=== PATIENT | male | born 1945 | race Caucasian/White ===

== ENCOUNTER 2020-07-07 13:04 | Inpatient (IN) | payer BC ==
[~2020-07-07] VITALS: Ht 170.2 cm; Wt 83.5 kg
[2020-07-07 18:42] VITALS: BP 98/49
[2020-07-07] MEDS ORDERED: Z GUARD REMEDY PASTE 57 GM TUBE TOP PRN (18:45)
[2020-07-07] MEDS ORDERED: HYDR-894 PO (19:16)
[2020-07-07] MEDS ORDERED: ALPR2TAB7 PO (19:16)
[2020-07-07] MEDS ORDERED: CLON0.3P TD (19:16)
[2020-07-07] MEDS ORDERED: VALS80TA2 PO (19:16)
[2020-07-07] MEDS ORDERED: ASPI-612 PO (19:16)
[2020-07-07] MEDS ORDERED: METF-494 PO (19:16)
[2020-07-07] MEDS ORDERED: ESCI20TA37 PO (19:16)
[2020-07-07] MEDS ORDERED: GLIM2TAB31 PO (19:16)
[2020-07-07] MEDS ORDERED: NITROGLYCERIN OINT TP (19:16)
[2020-07-07] MEDS ORDERED: DOCU-141 PO (19:16)
[2020-07-07] MEDS ORDERED: FLUT16SP NS (19:16)
[2020-07-07] MEDS ORDERED: ALLO300T2 PO (19:16)
[2020-07-07] MEDS ORDERED: HYDR-4384 PO (19:16)
[2020-07-07] MEDS ORDERED: INSU100V7 SQ (19:16)
[2020-07-07] MEDS ORDERED: NUT.237L36 PO (19:16)
[2020-07-07] MEDS ORDERED: ACET-2154 PO (19:16)
[2020-07-07] MEDS ORDERED: SIMV-49 PO (19:16)
[2020-07-07] MEDS ORDERED: MAGN400O6 PO (19:16)
[2020-07-07] MEDS ORDERED: TAMS-3 PO (19:16)
[2020-07-07] MEDS ORDERED: hydrALAZINE HCL 25 MG TABLET PO PRN (19:30)
[2020-07-07] MEDS ORDERED: DOCUSATE SODIUM 100 MG CAPSULE PO PRN (19:30)
[2020-07-07] MEDS ORDERED: DEXTROSE 50% 50 ML DISP.SYRIN IV PRN (19:30)
[2020-07-07] MEDS ORDERED: HYDROCODONE/APAP 5-325MG TABLET PO PRN (19:30)
[2020-07-07] MEDS ORDERED: ACETAMINOPHEN 325 MG TABLET PO PRN (19:30)
[2020-07-07 19:55] VITALS: BP 111/52
[2020-07-07] MEDS ORDERED: CLONIDINE-TTS 3 PATCH TD SCH (20:15)
[2020-07-07] MEDS ORDERED: NALOXONE HCL 0.4 MG/ML AMPUL IV PRN (21:00)
[2020-07-07] MEDS: BLOOD SUGAR DIAGNOSTIC 1 EACH STRIP VI SCH (21:43)
[2020-07-07] MEDS: INSULIN REGULAR, HUMAN 300 UNIT/3 ML VIAL SQ PRN (21:43)
[2020-07-07] MEDS: SIMVASTATIN 40 MG TABLET PO SCH (21:46)
[2020-07-07] MEDS: TAMSULOSIN HCL 0.4 MG CAP.SR.24H PO SCH (21:46)
[2020-07-07] MEDS: OXYCODONE HCL 5 MG TABLET PO PRN (21:47)
[2020-07-07] MEDS: INSULIN GLARGINE,HUM 300 UNITS/3 ML CARTRIDGE SQ SCH (21:48)
--- NOTE | 2020-07-07 22:18 | NUR ---
Received pt resting in bed and watching tv. AAO x2-3. No acute distress noted. Pt noted to be upset and hyperverbal with flights of ideas. Pt would be talking about his pain meds, then about directions where the sun rises, and how this hospital is crappy. Pt is angry because of his pain medication. He has [place], but pt stated that he takes oxycontin, morphine, and xanax. Pt refused to answer some assessment questions. Pt refused head-to-toe assessment. Pt had right hip replacement and has dressing that has been changed today 07/07/2020 in [facility], unable to take pic due to pt refusal and being upset. Risks and benefits explained, still refused. Notified Dr. Tafoya of these concerns with new orders. Pt oriented to unit and equipment. MRSA swab sent to the lab. Due meds given as ordered. C/o 10/10 pain of generalized and right hip pain, PRN pain med given as ordered. Safety measures maintained. Call light and personal items within reach. Will continue to monitor.
[2020-07-07] MEDS: MAGNESIUM HYDROXIDE 30 ML LIQUID UDC PO PRN (23:54)
[2020-07-07] MEDS: ALPRAZOLAM 0.5 MG TABLET PO PRN (23:54)
[2020-07-08 05:14] VITALS: BP 121/48
[2020-07-08] MEDS: BLOOD SUGAR DIAGNOSTIC 1 EACH STRIP VI SCH ×4 (06:31→20:35)
[2020-07-08] MEDS: INSULIN REGULAR, HUMAN 300 UNIT/3 ML VIAL SQ PRN ×3 (07:54→20:41)
[2020-07-08] MEDS: OXYCODONE HCL 5 MG TABLET PO PRN ×3 (07:55→20:29)
[2020-07-08 08:00] VITALS: BP 149/62
[2020-07-08] MEDS: ALLOPURINOL 300 MG TABLET PO SCH (08:01)
[2020-07-08] MEDS: ESCITALOPRAM OXALATE 10 MG TABLET PO SCH (08:01)
[2020-07-08] MEDS: VALSARTAN 80 MG TABLET PO SCH (08:01)
[2020-07-08] MEDS: GLIMEPIRIDE 2 MG TABLET PO SCH (08:01)
[2020-07-08] MEDS: ASPIRIN 325 MG TABLET PO SCH ×2 (08:01→16:18)
[2020-07-08] MEDS: METFORMIN XR 500 MG TAB.SR.24H PO SCH ×2 (08:08→17:11)
[2020-07-08] MEDS: GLUCERNA SHAKE 237 ML CAN PO SCH ×2 (08:35→16:19)
[2020-07-08] MEDS ORDERED: FLUTICASONE PROP NASAL SPRAY 16 GM BOTTLE NS SCH (09:00)
[2020-07-08] MEDS: ALPRAZOLAM 0.5 MG TABLET PO PRN (11:18)
[2020-07-08] MEDS ORDERED: FENTANYL 75 MCG/HR PATCH EACH TD SCH (14:00)
[2020-07-08] MEDS ORDERED: NALOXONE HCL 0.4 MG/ML AMPUL IV PRN (14:30)
[2020-07-08] MEDS: FENTANYL 50 MCG/HR PATCH TD SCH (15:00)
[2020-07-08 15:08] VITALS: BP 119/53
--- NOTE | 2020-07-08 19:45 | NUR ---
Patient in bed alert oriented, no sob no chest pain. Patient sleeping but easily arousable. Patient with abduction pillow between legs, kept both heels elevated with pillow, patient on supine position, refused to be turn on his left side, prefer to say on same position. Patient complain of r hip pain will medicate as ordered. cont to monitor.
[2020-07-08] MEDS: SIMVASTATIN 40 MG TABLET PO SCH (20:18)
[2020-07-08] MEDS: TAMSULOSIN HCL 0.4 MG CAP.SR.24H PO SCH (20:18)
[2020-07-08] MEDS: TRAZODONE 100 MG TABLET PO SCH (20:18)
[2020-07-08 20:27] VITALS: BP 125/55
--- NOTE | 2020-07-08 20:30 | NUR ---
Patient was offered to be turn and reposition, and to check his diaper but refused. Patient complain of pain of the right hip medicated as ordered for pain. cont to monitor.
[2020-07-08] MEDS: MAGNESIUM HYDROXIDE 30 ML LIQUID UDC PO PRN (20:32)
[2020-07-08] MEDS: INSULIN GLARGINE,HUM 300 UNITS/3 ML CARTRIDGE SQ SCH (20:37)
[2020-07-09] MEDS: OXYCODONE HCL 5 MG TABLET PO PRN ×3 (04:41→21:49)
[2020-07-09] MEDS: BLOOD SUGAR DIAGNOSTIC 1 EACH STRIP VI SCH ×4 (06:05→21:23)
[2020-07-09 06:43] VITALS: BP 130/61
--- NOTE | 2020-07-09 06:57 | NUR ---
Patient slept most of the night, cont on pain management s/p r hip replacement. Patient dressing intact, abduction pillow in place, given mom last night no result yet will endorsed to am shift. Patient was turn and reposition, incontinent of bladder, kept clean and dry, cont to monitor.
[2020-07-09 07:48] VITALS: BP 143/67
[2020-07-09] MEDS: INSULIN REGULAR, HUMAN 300 UNIT/3 ML VIAL SQ PRN ×3 (08:21→20:56)
[2020-07-09] MEDS: METFORMIN XR 500 MG TAB.SR.24H PO SCH ×2 (08:22→17:59)
[2020-07-09] MEDS: VALSARTAN 80 MG TABLET PO SCH (08:23)
[2020-07-09] MEDS: GLIMEPIRIDE 2 MG TABLET PO SCH (08:23)
[2020-07-09] MEDS: ALLOPURINOL 300 MG TABLET PO SCH (08:23)
[2020-07-09] MEDS: ESCITALOPRAM OXALATE 10 MG TABLET PO SCH (08:24)
[2020-07-09] MEDS: FLUTICASONE PROP NASAL SPRAY 16 GM BOTTLE NS SCH (08:27)
[2020-07-09] MEDS: ASPIRIN 325 MG TABLET PO SCH ×2 (08:30→17:45)
[2020-07-09] MEDS: ALPRAZOLAM 0.5 MG TABLET PO PRN ×2 (08:49→23:57)
--- NOTE | 2020-07-09 09:45 | NUR ---
Received patient in bed, Pt. is AAO x 4, NO SOB noted. Patient able to express needs. Vital signs stable. Patient S/P right hip surgery, dressing noted soiled with serosanguineous fluid at the start of the shift. Dressing changed and intact and dry. Due medications administered as ordered and scheduled. Pt. on Accu checks. Tolerated meds well. Patient administered Xanax 1mg PO PRN for anxiety and stated feeling much better. Skin kept clean and dry. patient repositioned side to side. Needs attended, safety measures in place, call light left at bed side and will continue with care.
[2020-07-09] MEDS: GLUCERNA SHAKE 237 ML CAN PO SCH ×2 (09:56→17:46)
--- NOTE | 2020-07-09 13:00 | NUR ---
Patient was up with PT/OT and took a shower during shift.
[2020-07-09] MEDS: MAGNESIUM HYDROXIDE 30 ML LIQUID UDC PO PRN (14:59)
--- NOTE | 2020-07-09 16:30 | NUR ---
Right hip dressing changed, surgical site with malena, pictures taken, NO S/SX of infection cleansed with NS, pat dried with gauze and covered with surgical dressing.
[2020-07-09 16:57] VITALS: BP 124/50
--- NOTE | 2020-07-09 18:22 | NUR ---
Patient in stable condition, NO acute distress noted. Vital signs stable. Due evening medications administered as ordered and scheduled and tolerated well. Skin kept clean and dry. SCD pumps on, BLE elevated. Patient repositioned for comfort. Also encouraged patient to move side to side. Patient stated feeling better after pain med was administered. Right hip dressing intact and dry at this time. Needs attended, safety measures in place and will continue with care.
--- NOTE | 2020-07-09 20:00 | NUR ---
Received patient in bed alert x 4 able to make needs known,no s/s of distress noted.Patient refused abduction pillow to be place in between legs at this time.Elevated both heels with pillow.Tolerated well.Dressing intact on Rt hip S/P Rt hip replacement.Due meds given .Will continue to monitor.Call light with in reach.
[2020-07-09 20:08] VITALS: BP 143/62
[2020-07-09] MEDS: SIMVASTATIN 40 MG TABLET PO SCH (20:49)
[2020-07-09] MEDS: TAMSULOSIN HCL 0.4 MG CAP.SR.24H PO SCH (20:49)
[2020-07-09] MEDS: TRAZODONE 100 MG TABLET PO SCH (20:49)
[2020-07-09] MEDS: INSULIN GLARGINE,HUM 300 UNITS/3 ML CARTRIDGE SQ SCH (20:52)
[2020-07-10 05:21] VITALS: BP 149/61
--- NOTE | 2020-07-10 05:51 | NUR ---
Patient sleeping but easily arousable c/o RT hip pain medicated as ordered with good result.Positioned gently with two person assist to left side tolerated well.Patient still refused to use abduction pillow to be place in between legs.Risk and benefits explained 3x.Patient Still refused.Stated he will "Notify nurses if he wants it"SCD pumps on,functioning well.Patient voided 3x using urinal.All needs anticipated and met accordingly.Safety measures remained in place.
[2020-07-10] MEDS: BLOOD SUGAR DIAGNOSTIC 1 EACH STRIP VI SCH ×4 (07:30→20:57)
[2020-07-10 08:57] VITALS: BP 151/79
[2020-07-10] MEDS: GLUCERNA SHAKE 237 ML CAN PO SCH ×2 (09:00→17:37)
[2020-07-10] MEDS: VALSARTAN 80 MG TABLET PO SCH (09:52)
[2020-07-10] MEDS: GLIMEPIRIDE 2 MG TABLET PO SCH (09:52)
[2020-07-10] MEDS: ALLOPURINOL 300 MG TABLET PO SCH (09:52)
[2020-07-10] MEDS: ASPIRIN 325 MG TABLET PO SCH ×2 (09:52→17:33)
[2020-07-10] MEDS: METFORMIN XR 500 MG TAB.SR.24H PO SCH ×2 (09:57→17:34)
[2020-07-10] MEDS: FLUTICASONE PROP NASAL SPRAY 16 GM BOTTLE NS SCH (09:57)
[2020-07-10] MEDS: ESCITALOPRAM OXALATE 10 MG TABLET PO SCH (09:58)
[2020-07-10] MEDS: OXYCODONE HCL 5 MG TABLET PO PRN ×3 (10:19→18:56)
--- NOTE | 2020-07-10 10:30 | NUR ---
PATIENT MAKING MULTIPLE COMPLAINTS PRE AND POST PHYSICAL THERAPY TX. PT ASSISTED WITH ALL REQUESTS INCLUDING ICE WATER,APPLE SAUCE ETC AND NURSE AWARE. PATIENT SET UP IN CHAIR AWAITING LUNCH WITH NO NEW COMPLAINTS.
[2020-07-10] MEDS: INSULIN REGULAR, HUMAN 300 UNIT/3 ML VIAL SQ PRN ×4 (10:38→20:24)
[2020-07-10] MEDS: ALPRAZOLAM 0.5 MG TABLET PO PRN ×3 (12:52→21:42)
--- NOTE | 2020-07-10 12:54 | NUR ---
Pt became anxious after talking with Dr. Mejia and therapists. PRN Xanax administered per PRN orders. Will continue to monitor for safety.
--- NOTE | 2020-07-10 13:48 | NUR ---
Pt received sound asleep in bed. No acute distress or SOB noted. Pt repositioned and assisted to attempted to use urinal, twice. Pt compliant with routine medications including 2 units of insulin coverage. PRN pain medication Oxyir 20 mg administered for pain. Pt vocalizing multiple complaints at length, from the age of his surgeon, to the type of care he has received, to insurance issues. associate account manager brought in to discuss plan of care and several D/C planning concerns, unsuccessfully. Pt c/o constipation, both PRN stool softener and MOM offered along with prune juice, all refused. SCD pumps applied while in bed. Pt cooperative with therapies as offered. Spoke with Pt's to update. All comfort and safety needs addressed. Call light placed within reach. Will continue to monitor.
--- NOTE | 2020-07-10 14:09 | NUR ---
INDIVIDUALIZED PLAN OF CARE
[2020-07-10] MEDS: MAGNESIUM HYDROXIDE 30 ML LIQUID UDC PO PRN (15:09)
[2020-07-10] MEDS ORDERED: POLYVINYL ALCOHOL OPHT DROPS 15 ML BOTTLE EACHEYE PRN (15:15)
--- NOTE | 2020-07-10 16:05 | NUR ---
HAYLEE COORDINATION OF CARE: SW provided patient with the following caregiving resources: [facility]; ([phone]), [facility]; ([phone]), [facility]; ([phone]). tray worker will continue to remain available to patient and provide ongoing supportive counseling and assess for any psychosocial needs. tray worker will encourage patient to comply with ARU goals of care. Addendum: 07/10/20 at 1606 by ANCA LEACH SW COORDINATION OF CARE: HAYLEE provided pts with the following caregiving resources: [facility]; ([phone]), [facility]; ([phone]), [facility]; ([phone]). tray worker will continue to remain available to patient and provide ongoing supportive counseling and assess for any psychosocial needs. tray worker will encourage patient to comply with ARU goals of care.
[2020-07-10 16:53] VITALS: BP 138/62
--- NOTE | 2020-07-10 19:13 | NUR ---
PRN Oxyir 20mg administered per PRN orders for 10/10 pain. Pt continues to express multiple c/o being dissatisfied irrelevant of attempts to meet possible needs. Pt refuses to transfer to toilet with assistance. Pt seen by , new order for psych consult received. Pt teaching provided regarding pain patch Q72hrs not being due until tomorrow. Call light placed within reach. Will continue to monitor and endorse to recruitment intern nurse.
--- NOTE | 2020-07-10 19:30 | NUR ---
RECEIVED PT SITTING COMFORTABLY . TENNIS PROFESSIONAL WAKE, ALERT AND ORIENTEDX4. PT COMPLAINING FOR A LOT OF STUFF LIKE PAIN MEDICATION, HIS FENTANYL PATCH,FOOD ETC. SAFETY AND COMFORT PROVIDED. WILL CONTINUE TO MONITOR.
[2020-07-10 20:15] VITALS: BP 130/79
[2020-07-10] MEDS: TAMSULOSIN HCL 0.4 MG CAP.SR.24H PO SCH (20:23)
[2020-07-10] MEDS: SIMVASTATIN 40 MG TABLET PO SCH (20:23)
[2020-07-10] MEDS: TRAZODONE 100 MG TABLET PO SCH (20:23)
[2020-07-10] MEDS: INSULIN GLARGINE,HUM 300 UNITS/3 ML CARTRIDGE SQ SCH (20:24)
[2020-07-11] MEDS: OXYCODONE HCL 5 MG TABLET PO PRN ×4 (01:57→21:16)
[2020-07-11 05:16] VITALS: BP 132/68
--- NOTE | 2020-07-11 06:01 | NUR ---
PT SLEPT INTERMITTENTLY. PT IN NO ACUTE DISTRESS. PT TURNED AND REPOSITIONED. PT REFUSED TO USE HIS ABDUCTOR PILLOW. PT OFFERED PRUNE JUICE AND COLACE FOR HIS COMPLAINT OF CONSTIPATION BUT PT REFUSED. DRESSING INTACT. PT GIVEN 2142 XANAX FOR ANXIETY. PT TOLERATED IT WELL. PT GIVEN OXYIR AT 0157 FOR PAIN. PT TOLERATED IT WELL. PT ON PSYCH CONSULT. SENT FACE SHEET TO [facility]. PRESCRIBED MEDICATION GIVEN AND PT TOLERATED IT WELL.SAFETY AND COMFORT PROVIDED. WILL ENDORSE TO INCOMING NURSE FOR CONTINUITY OF CARE.
[2020-07-11] MEDS: PANTOPRAZOLE SODIUM 40 MG TABLET.DR PO SCH (06:05)
[2020-07-11] MEDS: BLOOD SUGAR DIAGNOSTIC 1 EACH STRIP VI SCH ×4 (06:32→21:15)
--- NOTE | 2020-07-11 06:32 | NUR ---
PT BLOOD SUGAR 155. PT GRUMPY AND DOESN'T WANT TO BE TOUCHED AND MOVED. PT REFUSED DRESSING CHANGED. DRESSING INTACT. WILL ENDORSE TO INCOMING NURSE.
[2020-07-11] MEDS: METFORMIN XR 500 MG TAB.SR.24H PO SCH ×2 (07:51→18:23)
[2020-07-11 08:00] VITALS: BP 110/71
[2020-07-11] MEDS: GLUCERNA SHAKE 237 ML CAN PO SCH ×2 (08:05→17:25)
[2020-07-11] MEDS: INSULIN REGULAR, HUMAN 300 UNIT/3 ML VIAL SQ PRN ×3 (08:12→21:21)
[2020-07-11] MEDS: ASPIRIN 325 MG TABLET PO SCH ×2 (09:13→17:09)
[2020-07-11] MEDS: ESCITALOPRAM OXALATE 10 MG TABLET PO SCH (09:13)
[2020-07-11] MEDS: FLUTICASONE PROP NASAL SPRAY 16 GM BOTTLE NS SCH (09:13)
[2020-07-11] MEDS: ALLOPURINOL 300 MG TABLET PO SCH (09:13)
[2020-07-11] MEDS: GLIMEPIRIDE 2 MG TABLET PO SCH (09:13)
--- NOTE | 2020-07-11 10:00 | NUR ---
Withheld Valsartan at this time since pt's BP is 110/71. Will recheck BP later.
--- NOTE | 2020-07-11 11:53 | NUR ---
Dressing on right hip changed. Soiled with small serosanguineous drainage in dressing. No redness or swelling. No signs of infection. Tolerated well
[2020-07-11 12:30] VITALS: BP 157/79
[2020-07-11] MEDS: VALSARTAN 80 MG TABLET PO SCH (12:53)
--- NOTE | 2020-07-11 12:55 | NUR ---
gave Valsartan since BP is now 157/79, HR 94
--- NOTE | 2020-07-11 14:36 | NUR ---
Dr. Bowman talking to pt for psych consult
[2020-07-11] MEDS: FENTANYL 50 MCG/HR PATCH TD SCH (14:44)
[2020-07-11] MEDS: ALPRAZOLAM 0.5 MG TABLET PO PRN ×2 (14:46→21:26)
[2020-07-11 16:30] VITALS: BP 169/76
--- NOTE | 2020-07-11 19:35 | NUR ---
Received patient calm and lying in bed. AAOx3. No Signs of acute distress at this time. Patient denies SOB and pain. Patient is lying supine and refuses to use the abductor wedge. Vital signs stable. Side rails upx2, bed low and in locked position. Safety measures in place and will continue to monitor.
[2020-07-11 20:27] VITALS: BP 131/62
[2020-07-11] MEDS ORDERED: QUETIAPINE FUMARATE 25 MG TABLET PO SCH (21:00)
[2020-07-11] MEDS: SIMVASTATIN 40 MG TABLET PO SCH (21:14)
[2020-07-11] MEDS: TRAZODONE 100 MG TABLET PO SCH (21:14)
[2020-07-11] MEDS: TAMSULOSIN HCL 0.4 MG CAP.SR.24H PO SCH (21:14)
[2020-07-11] MEDS: INSULIN GLARGINE,HUM 300 UNITS/3 ML CARTRIDGE SQ SCH (21:20)
[2020-07-12 04:24] VITALS: BP 131/61
[2020-07-12] MEDS: PANTOPRAZOLE SODIUM 40 MG TABLET.DR PO SCH (06:35)
[2020-07-12] MEDS: BLOOD SUGAR DIAGNOSTIC 1 EACH STRIP VI SCH ×4 (06:46→20:28)
--- NOTE | 2020-07-12 07:30 | NUR ---
Received patient resting in bed. No signs of respiratory distress noted, patient is saturating well on room air. Patient has not IV access at this time. Patient reports pain of 9/10, will check eMAR for pain medication and administer as prescribed. Safety precautions in place, bed in the lowest position, locked with alarm activated. Call light and belongings are within reach. Will continue to monitor and observe.
[2020-07-12] MEDS: ASPIRIN 325 MG TABLET PO SCH ×2 (08:50→17:25)
[2020-07-12] MEDS: METFORMIN XR 500 MG TAB.SR.24H PO SCH ×2 (08:50→17:30)
[2020-07-12] MEDS: GLIMEPIRIDE 2 MG TABLET PO SCH (08:50)
[2020-07-12] MEDS: ALLOPURINOL 300 MG TABLET PO SCH (08:51)
[2020-07-12] MEDS: VALSARTAN 80 MG TABLET PO SCH (08:51)
[2020-07-12] MEDS: ESCITALOPRAM OXALATE 10 MG TABLET PO SCH (08:51)
[2020-07-12] MEDS: OXYCODONE HCL 5 MG TABLET PO PRN ×2 (08:52→17:25)
[2020-07-12] MEDS: FLUTICASONE PROP NASAL SPRAY 16 GM BOTTLE NS SCH (08:55)
[2020-07-12] MEDS ORDERED: CLONIDINE-TTS 3 PATCH TD SCH (09:00)
[2020-07-12] MEDS: GLUCERNA SHAKE 237 ML CAN PO SCH ×2 (09:05→17:26)
[2020-07-12 10:08] VITALS: BP 141/58
--- NOTE | 2020-07-12 11:19 | NUR ---
Spoke with Yolanda social services director calling to inquire about the patient's psychological state, reported that he was not agitated today and seems to be in good mood, making jokes. Will continue to monitor.
--- NOTE | 2020-07-12 11:34 | NUR ---
Patient is currently downstairs receiving physical therapy. Will check blood glucose when back on the floor.
--- NOTE | 2020-07-12 12:15 | NUR ---
Pharmacy called to report that the patient's EKG showed an prolonged QTC and that it is a adverse drug interaction of seroquel and lexapro. Will make MD aware.
--- NOTE | 2020-07-12 12:17 | NUR ---
Made Dr Adan aware that patient's QT is prolonged, and awaiting a response. Will continue to monitor.
[2020-07-12] MEDS: INSULIN REGULAR, HUMAN 300 UNIT/3 ML VIAL SQ PRN ×2 (12:54→20:31)
[2020-07-12 16:00] VITALS: BP 134/62
--- NOTE | 2020-07-12 18:11 | NUR ---
Patient is resting comfortably in bed, no sign of respiratory distress noted. Patient is saturating well on room air. No IV access. All medications given as ordered. Safety precautions in place, bed in the lowest position, locked with alarm activated. Call lights and belongings are within reach. Will endorse to the oncoming nurse.
[2020-07-12] MEDS: MIRALAX 17 GM POWD.PACK PO SCH (18:41)
[2020-07-12] MEDS: ALPRAZOLAM 0.5 MG TABLET PO PRN (18:42)
[2020-07-12 20:00] VITALS: BP 140/66
--- NOTE | 2020-07-12 20:10 | NUR ---
Received Patient in bed awake alert and able to make needs known,denies pain at this time, no s/s of distress noted, due meds given.Refused to use abduction pillow at this time. Will continue to reinforce the use of abduction pillow.Call light with in reach.Continue safety measures in place.Will continue to monitor.
[2020-07-12] MEDS: DOCUSATE SODIUM 100 MG CAPSULE PO SCH (20:24)
[2020-07-12] MEDS: SIMVASTATIN 40 MG TABLET PO SCH (20:25)
[2020-07-12] MEDS: TAMSULOSIN HCL 0.4 MG CAP.SR.24H PO SCH (20:25)
[2020-07-12] MEDS: TRAZODONE 100 MG TABLET PO SCH (20:25)
[2020-07-12] MEDS: INSULIN GLARGINE,HUM 300 UNITS/3 ML CARTRIDGE SQ SCH (20:37)
[2020-07-13] MEDS: PANTOPRAZOLE SODIUM 40 MG TABLET.DR PO SCH (06:32)
[2020-07-13] MEDS: BLOOD SUGAR DIAGNOSTIC 1 EACH STRIP VI SCH ×4 (06:35→20:40)
[2020-07-13 06:44] LABS: BASOPHILS % (AUTO) 0.7 % (0.0-2.0); EOSINOPHILS # (AUTO) 0.4 K/uL (0.0-0.7); EOSINOPHILS % (AUTO) 6.7 % (0.0-7.0); HEMATOCRIT 29.9 % (36.7-47.1); HEMOGLOBIN 9.9 g/dL (12.5-16.3); LYMPHOCYTES # (AUTO) 1.4 K/uL (20.0-40.0); LYMPHOCYTES % (AUTO) 22.1 % (20.5-51.5); MEAN CORPUSCULAR HEMOGLOBIN 30.1 uug (23.8-33.4); MEAN CORPUSCULAR HGB CONC 33 g/dL (32.5-36.3); MEAN CORPUSCULAR VOLUME 91.1 fL (73.0-96.2); MONOCYTES # (AUTO) 0.4 K/uL (2.0-10.0); MONOCYTES % (AUTO) 7.1 % (0.0-11.0); NEUTROPHILS % (AUTO) 63.4 % (38.5-71.5); PLATELET COUNT (AUTO) 209 K/uL (152-348); RED BLOOD CELL COUNT(AUTO) 3.28 MIL/uL (4.06-5.63); WHITE BLOOD COUNT (AUTO) 6.3 K/uL (3.6-10.2)
[2020-07-13 07:03] LABS: THYROID STIMULATING HORMONE 0.417 mIU/mL (0.358-3.740)
[2020-07-13 07:29] LABS: BILIRUBIN,TOTAL 0.5 mg/dL (0.2-1.0); CREATININE 0.9 mg/dL (0.6-1.3); MAGNESIUM 2.2 mg/dL (1.8-2.4); PHOSPHOROUS 4.4 mg/dL (2.5-4.9); POTASSIUM 4.7 mmol/L (3.5-5.1); TOTAL PROTEIN, SERUM 6.2 g/dL (6.4-8.2)
[2020-07-13 08:00] VITALS: BP 131/58
[2020-07-13] MEDS: DOCUSATE SODIUM 100 MG CAPSULE PO SCH ×2 (08:52→21:03)
[2020-07-13] MEDS: ASPIRIN 325 MG TABLET PO SCH ×2 (08:52→17:13)
[2020-07-13] MEDS: MIRALAX 17 GM POWD.PACK PO SCH (08:53)
[2020-07-13] MEDS: ESCITALOPRAM OXALATE 10 MG TABLET PO SCH (08:53)
[2020-07-13] MEDS: VALSARTAN 80 MG TABLET PO SCH (08:53)
[2020-07-13] MEDS: ALLOPURINOL 300 MG TABLET PO SCH (08:53)
[2020-07-13] MEDS: FLUTICASONE PROP NASAL SPRAY 16 GM BOTTLE NS SCH (08:54)
[2020-07-13] MEDS: METFORMIN XR 500 MG TAB.SR.24H PO SCH ×2 (08:54→17:13)
[2020-07-13] MEDS: GLUCERNA SHAKE 237 ML CAN PO SCH ×2 (08:55→17:22)
[2020-07-13] MEDS: GLIMEPIRIDE 2 MG TABLET PO SCH (08:56)
[2020-07-13] MEDS: OXYCODONE HCL 5 MG TABLET PO PRN ×2 (09:18→20:29)
[2020-07-13] MEDS: SIMETHICONE 80 MG TAB.CHEW PO PRN (09:22)
[2020-07-13] MEDS: CYANOCOBALAMIN 1000 MCG/ML VIAL IM SCH (11:43)
[2020-07-13] MEDS: INSULIN REGULAR, HUMAN 300 UNIT/3 ML VIAL SQ PRN ×3 (11:53→20:26)
[2020-07-13] MEDS: ALPRAZOLAM 0.5 MG TABLET PO PRN ×2 (12:39→23:12)
[2020-07-13 16:00] VITALS: BP 119/65
[2020-07-13 20:00] VITALS: BP 166/64
[2020-07-13] MEDS: SIMVASTATIN 40 MG TABLET PO SCH (20:22)
[2020-07-13] MEDS: TAMSULOSIN HCL 0.4 MG CAP.SR.24H PO SCH (20:22)
[2020-07-13] MEDS: TRAZODONE 100 MG TABLET PO SCH (20:23)
[2020-07-13] MEDS: INSULIN GLARGINE,HUM 300 UNITS/3 ML CARTRIDGE SQ SCH (20:24)
--- NOTE | 2020-07-13 20:49 | NUR ---
Received patient in bed, AAO x3. No acute distress or SOB was noted. On room air. Complained of pain on the right hip, rated 9/10 on numeric scale, Oxycodone 20 mg administered. Physical assessment done. Safety measures maintained. Fall prevention maintained. Bed in lock position, Side rails up x2 for safety. Continue to monitor.
--- NOTE | 2020-07-13 21:15 | NUR ---
Patient developed high BP:166/64, HR:82. No other symptom presented. PRN Hydralazine 25 mg PO administered. Continue to monitor.
--- NOTE | 2020-07-13 22:10 | NUR ---
Rechecked the BP:141/62, HR:78. Continue to monitor.
[2020-07-14 05:36] VITALS: BP 142/60
[2020-07-14] MEDS: PANTOPRAZOLE SODIUM 40 MG TABLET.DR PO SCH (06:00)
[2020-07-14] MEDS: BLOOD SUGAR DIAGNOSTIC 1 EACH STRIP VI SCH ×4 (06:36→21:50)
--- NOTE | 2020-07-14 08:00 | NUR ---
Received patient in bed, Pt. is AAO x 4, NO acute distress noted. Patient able to express needs. Vital signs stable. Right hip surgical site with dressing in place, intact and dry. No drainage noted up on assessment. Safety needs in place and will continue with care.
[2020-07-14] MEDS: INSULIN REGULAR, HUMAN 300 UNIT/3 ML VIAL SQ PRN ×4 (08:14→21:52)
[2020-07-14] MEDS: ESCITALOPRAM OXALATE 10 MG TABLET PO SCH (08:43)
[2020-07-14] MEDS: GLIMEPIRIDE 2 MG TABLET PO SCH (08:43)
[2020-07-14] MEDS: MIRALAX 17 GM POWD.PACK PO SCH (08:43)
[2020-07-14] MEDS: ALLOPURINOL 300 MG TABLET PO SCH (08:43)
[2020-07-14] MEDS: ASPIRIN 325 MG TABLET PO SCH ×2 (08:44→17:12)
[2020-07-14] MEDS: VALSARTAN 80 MG TABLET PO SCH (08:44)
[2020-07-14] MEDS: FERROUS SULFATE 325 MG TABEC PO SCH (08:44)
[2020-07-14] MEDS: DOCUSATE SODIUM 100 MG CAPSULE PO SCH ×2 (08:44→21:43)
[2020-07-14] MEDS: CYANOCOBALAMIN 1000 MCG/ML VIAL IM SCH (08:44)
[2020-07-14] MEDS: GLUCERNA SHAKE 237 ML CAN PO SCH ×2 (08:45→17:12)
[2020-07-14] MEDS: FLUTICASONE PROP NASAL SPRAY 16 GM BOTTLE NS SCH (08:45)
[2020-07-14] MEDS: OXYCODONE HCL 5 MG TABLET PO PRN ×3 (08:47→23:04)
[2020-07-14] MEDS: METFORMIN XR 500 MG TAB.SR.24H PO SCH ×2 (09:17→17:12)
[2020-07-14 09:22] VITALS: BP 121/66
[2020-07-14] MEDS: ALPRAZOLAM 0.5 MG TABLET PO PRN ×2 (10:55→21:41)
--- NOTE | 2020-07-14 12:46 | NUR ---
INTERDISCIPLINARY TEAM CONFERENCE
[2020-07-14 15:52] VITALS: BP 116/59
[2020-07-14] MEDS: FENTANYL 50 MCG/HR PATCH TD SCH (16:49)
--- NOTE | 2020-07-14 19:11 | NUR ---
Patient in stable condition, NO acute distress noted. All due medications administered as ordered and scheduled. Patient administered OxyIR 20mg PO Q 4hrs for pain and effective. Patient on continuous PT/OT therapy. Skin kept clean and dry. Needs attended and met. Endorsed to next shift and will continue with care.
[2020-07-14 21:01] VITALS: BP 128/68
[2020-07-14] MEDS: SIMVASTATIN 40 MG TABLET PO SCH (21:48)
[2020-07-14] MEDS: TAMSULOSIN HCL 0.4 MG CAP.SR.24H PO SCH (21:48)
[2020-07-14] MEDS: INSULIN GLARGINE,HUM 300 UNITS/3 ML CARTRIDGE SQ SCH (21:51)
[2020-07-14] MEDS: TRAZODONE 100 MG TABLET PO SCH (21:53)
--- NOTE | 2020-07-14 23:30 | NUR ---
Resting in bed watching TV upon initial rounds. AAOx4 No acute distress noted. Needs attended. All due meds given as scheduled. Medicated for pain as needed with relief noted. Voiding well in the urinal. Right hip dressing intact. BS 148 with 2units given as coverage. Lantus 25 units given as well. Kept comfortable. Fall precautions maintained. Siderails up for safety. Call arciniega within reach. VSS. Will monitor patient.
[2020-07-15] MEDS: OXYCODONE HCL 5 MG TABLET PO PRN ×3 (04:08→20:12)
[2020-07-15 05:22] VITALS: BP 116/51
[2020-07-15] MEDS: PANTOPRAZOLE SODIUM 40 MG TABLET.DR PO SCH (06:19)
--- NOTE | 2020-07-15 06:31 | NUR ---
End of shift notes: NPO maintained. IVF's infusing well. IV Ancef given as ordered. No ill effects noted. Medicated with Dilaudid as needed. No apparent distress noted. Addendum: 07/15/20 at 0633 by ANKUR DAVIDSON RN wrong patient
--- NOTE | 2020-07-15 06:37 | NUR ---
End of shift notes: Quiet night. Alert and oriented x4 No acute distress noted. Voiding well. All needs attended and met. Pain meds given as needed.
[2020-07-15] MEDS: BLOOD SUGAR DIAGNOSTIC 1 EACH STRIP VI SCH ×4 (06:41→20:13)
[2020-07-15 08:00] VITALS: BP 112/53
[2020-07-15] MEDS: INSULIN REGULAR, HUMAN 300 UNIT/3 ML VIAL SQ PRN ×3 (08:06→20:30)
[2020-07-15] MEDS: METFORMIN XR 500 MG TAB.SR.24H PO SCH ×2 (08:18→17:03)
[2020-07-15] MEDS: CYANOCOBALAMIN 1000 MCG/ML VIAL IM SCH (09:41)
[2020-07-15] MEDS: FERROUS SULFATE 325 MG TABEC PO SCH (09:42)
[2020-07-15] MEDS: DOCUSATE SODIUM 100 MG CAPSULE PO SCH ×2 (09:42→20:11)
[2020-07-15] MEDS: GLIMEPIRIDE 2 MG TABLET PO SCH (09:42)
[2020-07-15] MEDS: ASPIRIN 325 MG TABLET PO SCH ×2 (09:42→17:04)
[2020-07-15] MEDS: MIRALAX 17 GM POWD.PACK PO SCH (09:42)
[2020-07-15] MEDS: VALSARTAN 80 MG TABLET PO SCH (09:48)
[2020-07-15] MEDS: ALLOPURINOL 300 MG TABLET PO SCH (09:48)
[2020-07-15] MEDS: FLUTICASONE PROP NASAL SPRAY 16 GM BOTTLE NS SCH (09:49)
[2020-07-15] MEDS: ESCITALOPRAM OXALATE 10 MG TABLET PO SCH (09:49)
[2020-07-15] MEDS: GLUCERNA SHAKE 237 ML CAN PO SCH ×2 (09:52→18:39)
[2020-07-15] MEDS: ALPRAZOLAM 0.5 MG TABLET PO PRN ×2 (09:52→21:38)
--- NOTE | 2020-07-15 10:25 | NUR ---
Patient is AAO x 4, NO SOB noted. Vital signs stable. Due morning medications administered and tolerated well. Patient stated feeling anxious; Xanax 1mg PO PRN administered and tolerated. Right hip surgical site intact with small amount of drainage noted on dressing; patient asked for dressing to be changed later during shift. Repositioned for comfort. Skin kept clean and dry. needs attended, safety needs in place and will continue with care.
[2020-07-15 12:00] VITALS: BP 122/65
--- NOTE | 2020-07-15 16:07 | NUR ---
Right hip dressing changed, dressing noted with small amounts of serosanguineous drainage.
[2020-07-15 16:27] VITALS: BP 120/55
--- NOTE | 2020-07-15 18:39 | NUR ---
Patient in stable condition, NO SOB or acute distress noted. Evening meds administered and tolerated well. Needs attended and met and will continue with care.
[2020-07-15] MEDS: SIMVASTATIN 40 MG TABLET PO SCH (20:11)
[2020-07-15] MEDS: SIMETHICONE 80 MG TAB.CHEW PO PRN (20:11)
[2020-07-15] MEDS: TRAZODONE 100 MG TABLET PO SCH (20:11)
[2020-07-15] MEDS: TAMSULOSIN HCL 0.4 MG CAP.SR.24H PO SCH (20:11)
[2020-07-15] MEDS: INSULIN GLARGINE,HUM 300 UNITS/3 ML CARTRIDGE SQ SCH (20:16)
[2020-07-15 21:28] VITALS: BP 142/59
--- NOTE | 2020-07-15 21:32 | NUR ---
Received pt resting in bed and watching tv. No acute distress noted. Complaint of 10/10 on right hip and generalized pain. Due meds and PRN pain med given as ordered. Safety measures maintained. Call light and personal items within reach. Will continue to monitor.
--- NOTE | 2020-07-15 21:34 | NUR ---
Accucheck 159. Insulin coverage given as per sliding scale. Snacks given. Continue to monitor.
[2020-07-16 05:37] VITALS: BP 150/58
[2020-07-16] MEDS: OXYCODONE HCL 5 MG TABLET PO PRN ×4 (05:50→17:26)
[2020-07-16] MEDS: PANTOPRAZOLE SODIUM 40 MG TABLET.DR PO SCH (06:00)
[2020-07-16] MEDS: BLOOD SUGAR DIAGNOSTIC 1 EACH STRIP VI SCH ×4 (06:33→20:33)
[2020-07-16 07:25] VITALS: BP 121/55
[2020-07-16] MEDS: ALPRAZOLAM 0.5 MG TABLET PO PRN ×4 (08:21→20:46)
[2020-07-16] MEDS: ESCITALOPRAM OXALATE 10 MG TABLET PO SCH (08:22)
[2020-07-16] MEDS: METFORMIN XR 500 MG TAB.SR.24H PO SCH ×2 (08:22→17:25)
[2020-07-16] MEDS: VALSARTAN 80 MG TABLET PO SCH (08:22)
[2020-07-16] MEDS: DOCUSATE SODIUM 100 MG CAPSULE PO SCH ×2 (08:22→20:30)
[2020-07-16] MEDS: MIRALAX 17 GM POWD.PACK PO SCH (08:23)
[2020-07-16] MEDS: ALLOPURINOL 300 MG TABLET PO SCH (08:23)
[2020-07-16] MEDS: GLIMEPIRIDE 2 MG TABLET PO SCH (08:23)
[2020-07-16] MEDS: FERROUS SULFATE 325 MG TABEC PO SCH (08:23)
[2020-07-16] MEDS: ASPIRIN 325 MG TABLET PO SCH ×2 (08:23→17:25)
[2020-07-16] MEDS: CYANOCOBALAMIN 1000 MCG/ML VIAL IM SCH (08:24)
[2020-07-16] MEDS: FLUTICASONE PROP NASAL SPRAY 16 GM BOTTLE NS SCH (08:25)
[2020-07-16] MEDS: GLUCERNA SHAKE 237 ML CAN PO SCH ×2 (08:25→17:26)
--- NOTE | 2020-07-16 11:59 | NUR ---
refused insulin coverage for 157 bs 2u
[2020-07-16 15:44] VITALS: BP 126/63
[2020-07-16] MEDS: TAMSULOSIN HCL 0.4 MG CAP.SR.24H PO SCH (20:30)
[2020-07-16] MEDS: TRAZODONE 100 MG TABLET PO SCH (20:30)
[2020-07-16] MEDS: SIMVASTATIN 40 MG TABLET PO SCH (20:30)
[2020-07-16] MEDS: INSULIN REGULAR, HUMAN 300 UNIT/3 ML VIAL SQ PRN (20:43)
[2020-07-16] MEDS: INSULIN GLARGINE,HUM 300 UNITS/3 ML CARTRIDGE SQ SCH (20:44)
[2020-07-16 20:46] VITALS: BP 119/58
[2020-07-16] MEDS: SIMETHICONE 80 MG TAB.CHEW PO PRN (20:46)
--- NOTE | 2020-07-16 21:05 | NUR ---
Received pt resting in bed and watching tv. AAO x3-4. No acute distress noted. Due meds given as ordered. Accucheck 207, insulin coverage given as per sliding scale. Lantus also given as ordered. Safety measures maintained. Call light and personal items within reach. Will continue to monitor.
[2020-07-17] MEDS: OXYCODONE HCL 5 MG TABLET PO PRN ×4 (00:42→22:30)
[2020-07-17 05:35] VITALS: BP 108/54
[2020-07-17] MEDS: PANTOPRAZOLE SODIUM 40 MG TABLET.DR PO SCH (06:31)
[2020-07-17] MEDS: BLOOD SUGAR DIAGNOSTIC 1 EACH STRIP VI SCH ×4 (06:31→20:53)
[2020-07-17 08:00] VITALS: BP 132/62
[2020-07-17] MEDS: DOCUSATE SODIUM 100 MG CAPSULE PO SCH ×2 (08:47→20:53)
[2020-07-17] MEDS: ESCITALOPRAM OXALATE 10 MG TABLET PO SCH (08:47)
[2020-07-17] MEDS: GLIMEPIRIDE 2 MG TABLET PO SCH (08:48)
[2020-07-17] MEDS: METFORMIN XR 500 MG TAB.SR.24H PO SCH ×2 (08:48→17:03)
[2020-07-17] MEDS: ALLOPURINOL 300 MG TABLET PO SCH (08:48)
[2020-07-17] MEDS: FERROUS SULFATE 325 MG TABEC PO SCH (08:48)
[2020-07-17] MEDS: ASPIRIN 325 MG TABLET PO SCH ×2 (08:48→16:31)
[2020-07-17] MEDS: VALSARTAN 80 MG TABLET PO SCH (08:49)
[2020-07-17] MEDS: FLUTICASONE PROP NASAL SPRAY 16 GM BOTTLE NS SCH (08:50)
[2020-07-17] MEDS: GLUCERNA SHAKE 237 ML CAN PO SCH ×2 (08:50→16:31)
[2020-07-17] MEDS: MIRALAX 17 GM POWD.PACK PO SCH (08:52)
[2020-07-17] MEDS: INSULIN REGULAR, HUMAN 300 UNIT/3 ML VIAL SQ PRN ×3 (08:53→20:54)
[2020-07-17] MEDS: SIMETHICONE 80 MG TAB.CHEW PO PRN (09:03)
[2020-07-17] MEDS: ALPRAZOLAM 0.5 MG TABLET PO PRN ×2 (11:41→17:58)
--- NOTE | 2020-07-17 14:11 | NUR ---
Received patient awake in bed in stable condition. Patient continue pain management prior to ambulation and if needed. Patient continue therapy for increase strenght and endurance. Patient continue Addendum: 07/17/20 at 1719 by SID FERRERA RN RN Patient not in distress. Patient anxious noted in the morning. Xanax PRN given with good effect.
[2020-07-17] MEDS: FENTANYL 50 MCG/HR PATCH TD SCH (14:14)
[2020-07-17 16:00] VITALS: BP 136/54
--- NOTE | 2020-07-17 20:00 | NUR ---
Received patient in bed, Pt. is AAO x 4, NO acute distress noted. No s/s of SOB noted, on room air. Patient able to express needs, very needy and grumpy. Vital signs stable. Right hip surgical site with dressing in place, intact and dry. No drainage noted up on assessment. All needs attended to, will continue to monitor.Safety needs in place and will continue with care.
[2020-07-17] MEDS: SIMVASTATIN 40 MG TABLET PO SCH (20:52)
[2020-07-17] MEDS: TAMSULOSIN HCL 0.4 MG CAP.SR.24H PO SCH (20:53)
--- NOTE | 2020-07-17 21:00 | NUR ---
Patient is resting comfortably in bed. All medications given as ordered.Patient requested to take trazodone later in the night. Accucheck 157. Insulin coverage given as per sliding scale. Snacks given. Continue to monitor.Safety precautions in place, bed in the lowest position, locked with alarm activated. Call lights and belongings are within reach.
[2020-07-17] MEDS: INSULIN GLARGINE,HUM 300 UNITS/3 ML CARTRIDGE SQ SCH (21:08)
--- NOTE | 2020-07-17 22:30 | NUR ---
Patient complaint of 7/10 pain right him, administered oxycodone PRN.
[2020-07-17] MEDS: TRAZODONE 100 MG TABLET PO SCH (22:53)
--- NOTE | 2020-07-17 22:55 | NUR ---
Patient requested Trazodone, administered. Safety measures maintained. Continue to monitor.
[2020-07-18 04:52] VITALS: BP 107/56
--- NOTE | 2020-07-18 05:07 | NUR ---
Patient slept through the night. No acute distress noted, no significant events reported. Safety measure maintained. Will endorse oncoming nurse.
[2020-07-18] MEDS: PANTOPRAZOLE SODIUM 40 MG TABLET.DR PO SCH (06:06)
[2020-07-18] MEDS: BLOOD SUGAR DIAGNOSTIC 1 EACH STRIP VI SCH ×4 (06:34→20:35)
[2020-07-18 08:00] VITALS: BP 113/49
[2020-07-18] MEDS: FERROUS SULFATE 325 MG TABEC PO SCH (09:15)
[2020-07-18] MEDS: ASPIRIN 325 MG TABLET PO SCH ×2 (09:15→16:34)
[2020-07-18] MEDS: ESCITALOPRAM OXALATE 10 MG TABLET PO SCH (09:15)
[2020-07-18] MEDS: ALLOPURINOL 300 MG TABLET PO SCH (09:15)
[2020-07-18] MEDS: GLIMEPIRIDE 2 MG TABLET PO SCH (09:15)
[2020-07-18] MEDS: MIRALAX 17 GM POWD.PACK PO SCH (09:15)
[2020-07-18] MEDS: DOCUSATE SODIUM 100 MG CAPSULE PO SCH ×2 (09:15→20:28)
[2020-07-18] MEDS: METFORMIN XR 500 MG TAB.SR.24H PO SCH ×2 (09:16→17:56)
[2020-07-18] MEDS: GLUCERNA SHAKE 237 ML CAN PO SCH ×2 (09:16→16:35)
[2020-07-18] MEDS: VALSARTAN 80 MG TABLET PO SCH (09:16)
[2020-07-18] MEDS: FLUTICASONE PROP NASAL SPRAY 16 GM BOTTLE NS SCH (09:17)
[2020-07-18] MEDS: OXYCODONE HCL 5 MG TABLET PO PRN ×2 (09:26→20:29)
[2020-07-18] MEDS: INSULIN REGULAR, HUMAN 300 UNIT/3 ML VIAL SQ PRN ×2 (11:38→20:38)
[2020-07-18] MEDS: SIMETHICONE 80 MG TAB.CHEW PO PRN ×2 (11:39→20:29)
--- NOTE | 2020-07-18 14:59 | NUR ---
Received patient awake in bed in stable condition. Patient continue pain management prior to therapy with good effect. Patient continue xanax PRN for anxiety. no signs of agitation noted during this time. will continue monitor
[2020-07-18 15:59] VITALS: BP 95/49
[2020-07-18] MEDS: ALPRAZOLAM 0.5 MG TABLET PO PRN (16:39)
--- NOTE | 2020-07-18 19:40 | NUR ---
Awake during initial rounds. Denies pain at this time. Voided per urinal in moderate amount, clear yellow output. Safety measures and fall prevention observed. Continue care as planned.
[2020-07-18 20:00] VITALS: BP 125/69
[2020-07-18] MEDS: TRAZODONE 100 MG TABLET PO SCH (20:28)
[2020-07-18] MEDS: TAMSULOSIN HCL 0.4 MG CAP.SR.24H PO SCH (20:28)
[2020-07-18] MEDS: SIMVASTATIN 40 MG TABLET PO SCH (20:28)
[2020-07-18] MEDS: INSULIN GLARGINE,HUM 300 UNITS/3 ML CARTRIDGE SQ SCH (20:37)
[2020-07-19 04:00] VITALS: BP 128/57
--- NOTE | 2020-07-19 05:24 | NUR ---
Shift End Report: Slept good. Medicated once for pain with good effect. No further complaint presented all night. All needs attended and met. No significant event reported all night. Continue current rehab plan of care. VS stable.
[2020-07-19] MEDS: BLOOD SUGAR DIAGNOSTIC 1 EACH STRIP VI SCH ×4 (05:52→21:20)
[2020-07-19] MEDS: PANTOPRAZOLE SODIUM 40 MG TABLET.DR PO SCH (05:52)
[2020-07-19 07:36] VITALS: BP 139/50
[2020-07-19] MEDS: INSULIN REGULAR, HUMAN 300 UNIT/3 ML VIAL SQ PRN ×3 (08:51→21:19)
[2020-07-19] MEDS: ASPIRIN 325 MG TABLET PO SCH ×2 (08:51→16:34)
[2020-07-19] MEDS: DOCUSATE SODIUM 100 MG CAPSULE PO SCH ×2 (08:52→21:10)
[2020-07-19] MEDS: FERROUS SULFATE 325 MG TABEC PO SCH (08:52)
[2020-07-19] MEDS: ESCITALOPRAM OXALATE 10 MG TABLET PO SCH (08:52)
[2020-07-19] MEDS: ALLOPURINOL 300 MG TABLET PO SCH (08:52)
[2020-07-19] MEDS: GLIMEPIRIDE 2 MG TABLET PO SCH (08:52)
[2020-07-19] MEDS: VALSARTAN 80 MG TABLET PO SCH (08:52)
[2020-07-19] MEDS: OXYCODONE HCL 5 MG TABLET PO PRN ×2 (08:55→16:34)
[2020-07-19] MEDS: METFORMIN XR 500 MG TAB.SR.24H PO SCH ×2 (08:56→17:37)
[2020-07-19] MEDS: FLUTICASONE PROP NASAL SPRAY 16 GM BOTTLE NS SCH (08:57)
[2020-07-19] MEDS: GLUCERNA SHAKE 237 ML CAN PO SCH ×2 (08:59→16:35)
[2020-07-19] MEDS: MIRALAX 17 GM POWD.PACK PO SCH (08:59)
[2020-07-19] MEDS: ALPRAZOLAM 0.5 MG TABLET PO PRN ×2 (11:42→21:10)
[2020-07-19 16:17] VITALS: BP 131/53
--- NOTE | 2020-07-19 16:41 | NUR ---
patient initial blood sugar is 59, no symptoms of distress, patient is alert, oriented x4, verbally responsive, no sweating, no dizzy, patient drank orange juice, rechecked with result of 118.
--- NOTE | 2020-07-19 17:48 | NUR ---
patient noted very angry regarding diet, want to have regular diet, currently on cardiac diet explained patient about the risks and benefits, patient still insisting on having regular diet.
[2020-07-19 20:08] VITALS: BP 144/55
[2020-07-19] MEDS: TAMSULOSIN HCL 0.4 MG CAP.SR.24H PO SCH (21:10)
[2020-07-19] MEDS: SIMVASTATIN 40 MG TABLET PO SCH (21:10)
[2020-07-19] MEDS: TRAZODONE 100 MG TABLET PO SCH (21:10)
[2020-07-19] MEDS: INSULIN GLARGINE,HUM 300 UNITS/3 ML CARTRIDGE SQ SCH (21:18)
--- NOTE | 2020-07-20 01:06 | NUR ---
Resting in bef upon rounds. AAOx4 No acute distress noted. VSS. Will monitor patient, All due meds given without problem. Patient requested his Xanax, given ad ordered. Accucheck @ 2100 was 146, covered with 2units humalog plus Lantus 25 units given as well. Fall precautions maintained. Call arciniega within reach. Needs attended. Siderails up.VSS.
[2020-07-20 05:00] VITALS: BP 133/61
[2020-07-20] MEDS: PANTOPRAZOLE SODIUM 40 MG TABLET.DR PO SCH (06:04)
[2020-07-20] MEDS: BLOOD SUGAR DIAGNOSTIC 1 EACH STRIP VI SCH ×4 (06:37→21:18)
--- NOTE | 2020-07-20 06:46 | NUR ---
End of shift notes: aaox4 slept most of the shift. Needs attended. VSS. All needs attended and met. Will monitor patient. Voiding well in urinal. Denies any pain nor any discomfort.
--- NOTE | 2020-07-20 06:47 | NUR ---
TEXTED DR. UNDERWOOD FOR MRI APPROVAL.
[2020-07-20 06:53] LABS: BASOPHILS # (AUTO) 0.1 K/uL (0.0-8.0); BASOPHILS % (AUTO) 1.1 % (0.0-2.0); EOSINOPHILS # (AUTO) 0.2 K/uL (0.0-0.7); EOSINOPHILS % (AUTO) 5.1 % (0.0-7.0); HEMATOCRIT 28.4 % (36.7-47.1); HEMOGLOBIN 9.5 g/dL (12.5-16.3); LYMPHOCYTES # (AUTO) 1.2 K/uL (20.0-40.0); LYMPHOCYTES % (AUTO) 26.1 % (20.5-51.5); MEAN CORPUSCULAR HEMOGLOBIN 30.5 uug (23.8-33.4); MEAN CORPUSCULAR HGB CONC 33 g/dL (32.5-36.3); MEAN CORPUSCULAR VOLUME 91.7 fL (73.0-96.2); MONOCYTES # (AUTO) 0.3 K/uL (2.0-10.0); MONOCYTES % (AUTO) 6.6 % (0.0-11.0); NEUTROPHILS # (AUTO) 2.7 K/uL (1.8-8.9); NEUTROPHILS % (AUTO) 61.1 % (38.5-71.5); PLATELET COUNT (AUTO) 254 K/uL (152-348); WHITE BLOOD COUNT (AUTO) 4.5 K/uL (3.6-10.2)
[2020-07-20 07:08] LABS: POTASSIUM 4.2 mmol/L (3.5-5.1)
[2020-07-20 07:30] VITALS: BP 147/60
[2020-07-20] MEDS: OXYCODONE HCL 5 MG TABLET PO PRN ×3 (08:53→19:33)
[2020-07-20] MEDS: DOCUSATE SODIUM 100 MG CAPSULE PO SCH ×2 (08:55→21:08)
[2020-07-20] MEDS: VALSARTAN 80 MG TABLET PO SCH (08:55)
[2020-07-20] MEDS: ALLOPURINOL 300 MG TABLET PO SCH (08:55)
[2020-07-20] MEDS: GLIMEPIRIDE 2 MG TABLET PO SCH (08:55)
[2020-07-20] MEDS: FERROUS SULFATE 325 MG TABEC PO SCH (08:55)
[2020-07-20] MEDS: ASPIRIN 325 MG TABLET PO SCH ×2 (08:55→17:02)
[2020-07-20] MEDS: METFORMIN XR 500 MG TAB.SR.24H PO SCH ×2 (08:56→17:02)
[2020-07-20] MEDS: ESCITALOPRAM OXALATE 10 MG TABLET PO SCH (08:56)
[2020-07-20] MEDS: FLUTICASONE PROP NASAL SPRAY 16 GM BOTTLE NS SCH (08:57)
[2020-07-20] MEDS: MIRALAX 17 GM POWD.PACK PO SCH (08:58)
[2020-07-20] MEDS: GLUCERNA SHAKE 237 ML CAN PO SCH ×2 (08:58→17:02)
[2020-07-20] MEDS: SIMETHICONE 80 MG TAB.CHEW PO PRN (09:38)
[2020-07-20] MEDS: ALPRAZOLAM 0.5 MG TABLET PO PRN ×2 (10:03→21:08)
--- NOTE | 2020-07-20 11:13 | NUR ---
patient is seems very upset, using inappropriate words to staff, patient is saying that he is born here, uses these words, get me someone who is born here and understands my language. needs met timely, assisted to go to chair, assisted with cleaning, assisted to the bathroom, patient is very mad over food, noncompliant with cardiac diet, risks and benefit explained, despite does not want to follow the diet.
[2020-07-20] MEDS: INSULIN REGULAR, HUMAN 300 UNIT/3 ML VIAL SQ PRN ×2 (11:51→21:16)
--- NOTE | 2020-07-20 14:40 | NUR ---
MRI cancelled as ordered, xrays done for right hip. incision site is well approximated. patient still had issues with food, addressed to director of critical care per MD order
[2020-07-20] MEDS: FENTANYL 50 MCG/HR PATCH TD SCH (15:20)
[2020-07-20 15:33] VITALS: BP 133/71
--- NOTE | 2020-07-20 17:03 | NUR ---
patient blood sugar before dinner 66, patient drank his glucerna, refused to recheck the blood sugar, patient stated he feels fine, no symptoms of hypoglycemia noted, verbally responsive, alert, oriented x4, no excessive sweating noted, extremities are warm, no acute distress noted.
--- NOTE | 2020-07-20 17:06 | NUR ---
malena removed as ordered, per rehabilitation case coordinator patient is going to have follow up with home health, incision site is clean and dry, no drainage noted, no leakage noted, pink in color, steri-strips applied, patient teaching done for care upon discharge of incision site, wash hands, do not touch incision site, do not remove steri strips until they fall off itself, cover with plastic during shower, if any odor, or drainage noted, or opening noted at incision site, call surgeon, or go to nearest ER ( EMERGENCY ROOM), patient verbalized understanding of it, patient made aware that home health will also follow up your care upon discharge
--- NOTE | 2020-07-20 20:05 | NUR ---
complained of right hip pain, Oxy IR 20mg po given as needed. slight relief noted. Needs attended. Kept comfortable. All due meds given. voiding well in the urinal.Will monitor patient.Patient for possible discharge tomorrow. Right hip incision clean and dry' with steristrips PREFLIGHT MECHANIC. VSS.
[2020-07-20 20:08] VITALS: BP 132/56
[2020-07-20] MEDS: TAMSULOSIN HCL 0.4 MG CAP.SR.24H PO SCH (21:07)
[2020-07-20] MEDS: SIMVASTATIN 40 MG TABLET PO SCH (21:07)
[2020-07-20] MEDS: TRAZODONE 100 MG TABLET PO SCH (21:08)
[2020-07-20] MEDS: INSULIN GLARGINE,HUM 300 UNITS/3 ML CARTRIDGE SQ SCH (21:17)
[2020-07-21] MEDS: OXYCODONE HCL 5 MG TABLET PO PRN ×2 (04:35→10:18)
[2020-07-21 04:40] VITALS: BP 128/64
[2020-07-21] MEDS: PANTOPRAZOLE SODIUM 40 MG TABLET.DR PO SCH (06:08)
[2020-07-21] MEDS: ALPRAZOLAM 0.5 MG TABLET PO PRN (06:29)
[2020-07-21] MEDS: BLOOD SUGAR DIAGNOSTIC 1 EACH STRIP VI SCH ×3 (06:31→16:30)
--- NOTE | 2020-07-21 07:10 | NUR ---
End of shift notesL:edicated with Oxy 20mg for right hip pain. Relief noted. Patient also medicated with xanax. Possible d/c today. Accucheck 83, apple juice given.
[2020-07-21 08:30] VITALS: BP 121/56
[2020-07-21] MEDS: ASPIRIN 325 MG TABLET PO SCH ×2 (08:58→17:00)
[2020-07-21] MEDS: VALSARTAN 80 MG TABLET PO SCH (08:59)
[2020-07-21] MEDS: FERROUS SULFATE 325 MG TABEC PO SCH (08:59)
[2020-07-21] MEDS: ESCITALOPRAM OXALATE 10 MG TABLET PO SCH (08:59)
[2020-07-21] MEDS: GLIMEPIRIDE 2 MG TABLET PO SCH (08:59)
[2020-07-21] MEDS: ALLOPURINOL 300 MG TABLET PO SCH (08:59)
[2020-07-21] MEDS ORDERED: CLONIDINE-TTS 3 PATCH TD SCH ×2 (09:00)
[2020-07-21] MEDS: METFORMIN XR 500 MG TAB.SR.24H PO SCH (09:00)
[2020-07-21] MEDS: GLUCERNA SHAKE 237 ML CAN PO SCH ×2 (09:00→17:00)
[2020-07-21] MEDS: FLUTICASONE PROP NASAL SPRAY 16 GM BOTTLE NS SCH (09:00)
[2020-07-21] MEDS: DOCUSATE SODIUM 100 MG CAPSULE PO SCH (09:04)
[2020-07-21] MEDS: MIRALAX 17 GM POWD.PACK PO SCH (09:04)
--- NOTE | 2020-07-21 09:42 | NUR ---
spoke to iRana credit control officer from Dr Duong office regarding patient incision site, noted some gap after removal of malena, per Riana she is going to send message to Lily physician transition assistant of Dr Duong.
[2020-07-21] MEDS: SIMETHICONE 80 MG TAB.CHEW PO PRN (10:19)
--- NOTE | 2020-07-21 10:37 | NUR ---
received call back from YARIEL Bautista of dr Paige, notified that patient incision site, epidermis is not well approximated after malena removal, per YARIEL Bautista make office visit apt early next week, apt made on jul 26, at [address] paige, patient made aware, patient verbalized the understanding of importance of apt.
[2020-07-21] MEDS: INSULIN REGULAR, HUMAN 300 UNIT/3 ML VIAL SQ PRN (11:54)
--- NOTE | 2020-07-21 14:59 | NUR ---
DR Tafoya ordered to remove the fentanyl patch from patient before he goes home, and discontinue the fantanyl patch, dr tafoya was with patient in person with this telegraphic typewriter operator, explained to patient that we are going to remove your fentanyl patch, patient refused to remove it, dr tafoya explained to patient that we can leave it on you if you ( patient ) not going to take any other drug at home, and follow up with your pain management MD. patient verbalized the understanding of it in presence of dr tafoya and this telegraphic typewriter operator (nurse). dr tafoya stated it is ok to discharge patient with fentanyl patch on. Addendum: 07/21/20 at 1520 by GRACE DURON RN, RN patient promised he would not take any other drug while he has fentanyl patch on in presence of dr tafoya and this telegraphic typewriter operator ( nurse)
--- NOTE | 2020-07-21 15:05 | NUR ---
patient is alert oriented x4, no distress noted, Patient is being discharged home with [facility] ambulance, being picked up at 1600. patient received his bedside commode and front wheel walker, raised toilet sheet is being delivered at home per [employer]. discharge instructions given to patient, reinforced teaching about incision site care, such as do not remove steri strips, patient noted constantly touching the steri strips placed yesterday 07/20/20, peeled them off, asked the reason, patient stated it was itching. replaced with new steri strips, incision site is dry, clean, no drainage noted, pink in color, nice and clean, seems more approximated than yesterday. covered with boarder dressing to prevent patient from touching it and removing them. reinforced discharge instructions, follow up with surgeon on the jul 26, 2020 at 1300, apt paper phone number and address provided to patient, follow up with primary care physician and pain management. patient verbalized understanding of it. noted with small closed blister to right lower abdomen. otherwise skin is intact. belongings are accounted and signed, patient own medication nasal spray given to patient.
[2020-07-21 15:40] VITALS: BP 119/60
--- NOTE | 2020-07-21 16:55 | NUR ---
patient discharged home, picked up by [facility] ambulance, discharge instructions packet given to patient, prescription faxed to patient choice of pharmacy, [facility], belongings sent with patient.
[2020-07-26] MEDS ORDERED: CLONIDINE-TTS 3 PATCH TD SCH (09:00)
== END 2020-07-21 16:55 | disposition home health service (06) | DRG 559 ==
PROVIDERS: ADMIT Physical Medicine & Rehabilitation Pain Medicine; ATTEND Physical Medicine & Rehabilitation Pain Medicine
DX: S72.141D Displaced intertrochanteric fracture of right femur, subsequent encounter for closed fracture with routine healing (principal); E43 Unspecified severe protein-calorie malnutrition; D68.59 Other primary thrombophilia; F33.3 Major depressive disorder, recurrent, severe with psychotic symptoms; W01.0XXD Fall on same level from slipping, tripping and stumbling without subsequent striking against object, subsequent encounter; E78.5 Hyperlipidemia, unspecified; G62.9 Polyneuropathy, unspecified; I10 Essential (primary) hypertension; I25.10 Atherosclerotic heart disease of native coronary artery without angina pectoris; M81.0 Age-related osteoporosis without current pathological fracture; Z96.641 Presence of right artificial hip joint; K21.9 Gastro-esophageal reflux disease without esophagitis; E11.65 Type 2 diabetes mellitus with hyperglycemia; F41.9 Anxiety disorder, unspecified; G89.29 Other chronic pain; K56.41 Fecal impaction; M10.9 Gout, unspecified; M19.90 Unspecified osteoarthritis, unspecified site; N40.0 Benign prostatic hyperplasia without lower urinary tract symptoms; Z79.891 Long term (current) use of opiate analgesic; Z79.899 Other long term (current) drug therapy; M54.5 Low back pain; R68.89 Other general symptoms and signs
CPT/HCPCS: 36415; 73501; 82652; 83550; 83735; 84100; 84443; 85025; 93005; J1815; J3420; J3535